=== PATIENT | male | born 2000 | race Caucasian/White ===

== ENCOUNTER 2021-08-06 12:04 | Day surgery (SDC) | payer OTHER, SELFPAY ==
[~2021-08-06] VITALS: Ht 180.3 cm; Wt 85.9 kg
[~2021-08-06 12:04] MED LIST: NS 1,000 ML IV ONE; fentaNYL 100 MCG/2 ML INJECTION (J3010) As Ordered ONE
[2021-08-06] MEDS ORDERED: propofoL 500 MG/50 ML VIAL As Ordered ONE (13:01)
[2021-08-06 13:09] VITALS: BP 121/60
== END 2021-08-06 13:13 | disposition home or self-care (01) ==
LOC: M OPP 12:04
PROVIDERS: ATTEND Internal Medicine Gastroenterology
DX: R19.7 Diarrhea, unspecified (principal); Z53.20 Procedure and treatment not carried out because of patient's decision for unspecified reasons